=== PATIENT | female | born 1955 | race Caucasian/White ===

== ENCOUNTER 2016-08-10 10:52 | Emergency (ER) | payer OTHER ==
[~2016-08-10] VITALS: Ht 149.9 cm; Wt 79.4 kg
[2016-08-10 10:57] VITALS: TEMP 36.5; Ht 149.9 cm; Wt 79.4 kg
[2016-08-10] MEDS ORDERED: FAMO20TA11 PO (11:23)
[2016-08-10] MEDS ORDERED: CONJ0.3T3 PO (11:24)
[2016-08-10] MEDS ORDERED: CHOL1000 PO (11:24)
[2016-08-10] MEDS ORDERED: ALUMINUM/MAGNESIUM SUSP 30 ML UDC PO STA (11:31)
[2016-08-10] MEDS ORDERED: LIDOCAINE HCL 2% VISC SOLN 20 ML UDC PO STA (11:31)
[2016-08-10] MEDS ORDERED: ONDANSETRON INJ 2 MG/ML 2 ML VIAL IV STA (11:57)
[2016-08-10] MEDS ORDERED: SODIUM CHLORIDE 0.9% 1000ML 1,000 ML IV STA (11:57)
[2016-08-10 12:08] LABS: BASO % 0.1 %; BASO ABS # 0.01 K/uL (0-0.2); COMPLETE YES; EOS % 0.5 %; IG% 0.4 %; LYMPH % 13.5 %; LYMPH ABS # 1.14 K/uL (1.2-3.4); MEAN CELL VOLUME 91.7 fL (80-100); MEAN CORPUSCULAR HEMOGLOBIN 31.1 pg (25-34); MEAN PLATELET VOLUME 9.2 fL (7.4-10.4); NEUT % 80.5 %; PLATELET COUNT 217 K/uL (130-400); RED BLOOD COUNT 4.69 M/uL (4.2-5.4); WHITE BLOOD COUNT 8.46 K/uL (4.8-10.8)
[2016-08-10 12:26] LABS: ALT/SGPT 20 U/L (12-78); BLOOD UREA NITROGEN 11 mg/dl (7-18); BUN/CREATININE RATIO 17.7 (10-20); CALCIUM 9.3 mg/dl (8.5-10.1); CARBON DIOXIDE 25 mmol/L (21-32); CHLORIDE 107 mmol/L (98-107); CREATININE 0.64 mg/dl (0.60-1.20); GLUCOSE 103 mg/dl (70-99); POTASSIUM 3.7 mmol/L (3.5-5.1); SODIUM 143 mmol/L (136-145)
[2016-08-10 12:29] LABS: ALKALINE PHOSPHATASE 84 U/L (45-117); AST/SGOT 15 U/L (15-37)
--- NOTE | 2016-08-10 12:46 | EMERGENCY ROOM VISIT NOTE ---
History First contact with patient: 11:02 Chief Complaint: ABDOMINAL PAIN Stated Complaint: BURNING IN CHEST, SICK IN STOMACH Nursing Triage Summary: Patient states "since Wednesday I've been having burning in my stomach up into my chest and I've been vomiting". Pt associates nausea. History of Present Illness The patient is a 60 year old female who presents to the Emergency Room with complaints of burning in her stomach and up into her chest which started on Wednesday. The patient has been taking Pepcid with slight relief. The patient does have a history of intermittent heartburn which she takes Pepcid on an as- needed basis. The patient has never had an endoscopy performed. The patient has formally not been diagnosed with GERD. The patient admits to nausea and one episode of vomiting yesterday and today. The patient admits to no change in bowel movement. Patient denies any urinary symptoms. Review of Systems 10 system review was performed and was negative unless stated otherwise history of present illness. Past Medical/Surgical History Heartburn, back surgery Social History Smoking Status: Never Smoker Smokeless Tobacco Use: No Alcohol Use: none Drug Use: none Marital Status: Housing Status: lives with family Occupation Status: employed Current/Historical Medications Scheduled Cholecalciferol (Vitamin D3), 1 TAB PO DAILY Estrog Conj/Medryoxyprog Acet (Prempro 0.3MG/1.5MG), 1 TAB PO DAILY Famotidine (Pepcid), 20 MG PO DAILY Allergies Coded Allergies: No Known Allergies (Unverified , 08/10/16) Physical Exam Vital Signs Date Time Temp Pulse Resp B/P Pulse Ox O2 Delivery O2 Flow Rate FiO2 08/10/16 10:57 36.5 88 18 150/82 95 Room Air Physical Exam GENERAL: 60-year-old white female appears in no acute distress. MENTAL Status: Alert and oriented 3. EYES: No icterus noted MOUTH: Mucosa is moist NECK: Supple, no lymphadenopathy noted. No carotid bruits noted. LUNGS: Clear auscultation without wheezes rales or rhonchi. CARDIAC: Regular rate and rhythm without murmur. Pulses is full and equal throughout. BACK: No CVA tenderness noted. ABDOMEN: Positive bowel sounds all 4 quadrants. Soft, mild tenderness palpation in the epigastric region otherwise nontender to palpation without organomegaly or masses. EXTREMITIES: No cyanosis or edema noted. Medical Decision & Procedures Laboratory Results 08/10/16 11:55 Red Blood Count 4.69, Mean Corpuscular Volume 91.7, Mean Corpuscular Hemoglobin 31.1, Mean Corpuscular Hemoglobin Concent 34.0, Mean Platelet Volume 9.2, Neutrophils (%) (Auto) 80.5, Lymphocytes (%) (Auto) 13.5, Monocytes (%) (Auto) 5.0, Eosinophils (%) (Auto) 0.5, Basophils (%) (Auto) 0.1, Neutrophils # (Auto) 6.82, Lymphocytes # (Auto) 1.14, Monocytes # (Auto) 0.42, Eosinophils # (Auto) 0.04, Basophils # (Auto) 0.01 08/10/16 11:55 Test 08/10/16 11:55 White Blood Count 8.46 K/uL (4.8-10.8) Red Blood Count 4.69 M/uL (4.2-5.4) Hemoglobin 14.6 g/dL (12.0-16.0) Hematocrit 43.0 % (37-47) Mean Corpuscular Volume 91.7 fL (80-100) Mean Corpuscular Hemoglobin 31.1 pg (25-34) Mean Corpuscular Hemoglobin Concent 34.0 g/dl (32-36) Platelet Count 217 K/uL (130-400) Mean Platelet Volume 9.2 fL (7.4-10.4) Neutrophils (%) (Auto) 80.5 % Lymphocytes (%) (Auto) 13.5 % Monocytes (%) (Auto) 5.0 % Eosinophils (%) (Auto) 0.5 % Basophils (%) (Auto) 0.1 % Neutrophils # (Auto) 6.82 K/uL (1.4-6.5) Lymphocytes # (Auto) 1.14 K/uL (1.2-3.4) Monocytes # (Auto) 0.42 K/uL (0.11-0.59) Eosinophils # (Auto) 0.04 K/uL (0-0.5) Basophils # (Auto) 0.01 K/uL (0-0.2) RDW Standard Deviation 42.9 fL (36.4-46.3) RDW Coefficient of Variation 12.8 % (11.5-14.5) Immature Granulocyte % (Auto) 0.4 % Immature Granulocyte # (Auto) 0.03 K/uL (0.00-0.02) Anion Gap 11.0 mmol/L (3-11) Est Creatinine Clear Calc Drug Dose 87.3 ml/min Estimated GFR () 114.0 Estimated GFR (Non- 98.4 BUN/Creatinine Ratio 17.7 (10-20) Calcium Level 9.3 mg/dl (8.5-10.1) Total Bilirubin 0.3 mg/dl (0.2-1) Direct Bilirubin < 0.1 mg/dl (0-0.2) Aspartate Amino Transf (AST/SGOT) 15 U/L (15-37) Alanine Aminotransferase (ALT/SGPT) 20 U/L (12-78) Alkaline Phosphatase 84 U/L (45-117) Total Protein 7.7 gm/dl (6.4-8.2) Albumin 4.0 gm/dl (3.4-5.0) Lipase 198 U/L (73-393) Medications Administered Medications (Trade) Dose Ordered Sig/Francis Route Start Time Stop Time Status Last Admin Dose Admin Lidocaine HCl (Viscous Lidocaine 2% Soln) 10 ml NOW STAT PO 08/10/16 11:31 08/10/16 11:32 DC 08/10/16 12:18 10 ML Al Hydroxide/Mg Hydroxide 30 ml 30 ml NOW STAT PO 08/10/16 11:31 08/10/16 11:32 DC 08/10/16 12:18 30 ML Sodium Chloride (Nss 1000ml) 1,000 ml @ 999 mls/hr Q1H1M STAT IV 08/10/16 11:57 08/10/16 12:57 08/10/16 11:57 999 MLS/HR Ondansetron HCl (Zofran Inj) 4 mg NOW STAT IV 08/10/16 11:57 08/10/16 11:59 DC 08/10/16 12:17 4 MG ED Course The patient was evaluated. IV access was obtained. The patient was given 1 L normal saline wide-open. The patient was given Zofran 4 mg IV for nausea. The patient was given a GI cocktail. The patient on reevaluation was feeling much better after receiving the GI cocktail. CBC and differential, renal profile, LFTs and lipase levels were ordered. Labs are reviewed and were unremarkable. The patient was informed of all findings and discharged home in stable condition. Medical Decision Differential diagnosis include GERD, acute gastritis, acute cholecystitis Impression Primary Impression: GERD (gastroesophageal reflux disease) Departure Information Dispostion Home / Self-Care Condition GOOD Referrals Mary Valenzuela M.D. (PCP) Forms Call Back Authorization, HOME CARE DOCUMENTATION FORM, IMPORTANT VISIT INFORMATION, [facility] Patient Instructions A Signature Page, ED GERD Additional Instructions Avoid spicy or acidic foods. Recommend [id number] Prilosec 20 mg daily. Also take 20 mg of Pepcid at bedtime as well as mid morning. If symptoms persist, follow-up with your family physician for referral for endoscopy.
[2016-08-10 13:42] VITALS: BP 134/82; PULSE 91; O2SAT 93
== END 2016-08-10 13:43 | disposition home or self-care (01) ==
LOC: C.EDB 10:56 → C.EDC 13:43
DX: K21.9 Gastro-esophageal reflux disease without esophagitis (principal); Z79.899 Other long term (current) drug therapy; Z98.890 Other specified postprocedural states